=== PATIENT | female | born 1990 | race Caucasian/White ===

== ENCOUNTER → 2022-07-11 | Outpatient (CLI) | payer OTHER ==
[2022-07-13 04:11] LABS: CHLAMYDIA TRACHOMATIS, NAA Negative (Negative)
== END | disposition home or self-care (01) ==
LOC: LAB 16:13 → LAB SHORT 16:13
PROVIDERS: Family Medicine
DX: Z11.3 Encounter for screening for infections with a predominantly sexual mode of transmission (principal)
CPT/HCPCS: 87491; 87591

== ENCOUNTER 2022-08-07 11:37 | Day surgery (SDC) | payer OTHER ==
[2022-08-07] VITALS (11 sets, daily range): BP systolic 100–111; BP diastolic 62–81
[~2022-08-07] VITALS: Ht 162.6 cm; Wt 63.7 kg
[2022-08-07] MEDS ORDERED: DESVENLAFAXINE50 MG PO (11:56)
--- NOTE | 2022-08-07 15:59 | NUR ---
Discharge instructions reviewed with patient. Patient verbalizes understanding. Copy given to patient to take home. Discharged via wheelchair to private car for ride home.
--- NOTE | 2022-08-07 16:18 | NUR ---
ADDITIONAL VITAL SIGNS SCANNED INTO EMR.
== END 2022-08-07 16:00 | disposition home or self-care (01) ==
LOC: ORSCMMR 11:37 → ORD 12:30 → ORSCMMR 16:00
PROVIDERS: Obstetrics & Gynecology
PROC: 0UPD7HZ Removal of Contraceptive Device from Uterus and Cervix, Via Natural or Artificial Opening (ICD-10-PCS; principal; 2022-08-07 12:30)
DX: Z30.432 Encounter for removal of intrauterine contraceptive device (principal)
CPT/HCPCS: J1100; J2250; J2310; J2370; J2405; J2704; J3010; J7120

== ENCOUNTER 2022-09-02 12:04 | Emergency (ER) | payer OTHER ==
[~2022-09-02] VITALS: Ht 165.1 cm; Wt 56.7 kg
[~2022-09-02 12:04] MED LIST: DESVENLAFAXINE50 MG PO
[2022-09-02 12:21] VITALS: BP 115/74
[2022-09-02] MEDS ORDERED: Amoxicillin500 MG PO (12:23)
== END 2022-09-02 12:24 | disposition home or self-care (01) ==
LOC: ER 12:04
DX: K04.7 Periapical abscess without sinus (principal); Z88.5 Allergy status to narcotic agent; Z91.040 Latex allergy status
CPT/HCPCS: 99282